=== PATIENT | female | born 1985 | race Caucasian/White ===

== ENCOUNTER 2022-01-14 09:07 | Inpatient (IN) | payer OTHER ==
[2022-01-13 12:29] LABS: BASOPHILS % (AUTO) 0.3 % (0.0-2.0); EOSINOPHILS # (AUTO) 0.2 K/uL (0-0.4); EOSINOPHILS % (AUTO) 2.3 % (0.0-4.0); HEMATOCRIT 36.2 % (36-48); HEMOGLOBIN 12.1 g/dL (12.0-16.0); LYMPHOCYTES # (AUTO) 1.4 K/uL (2.5-16.5); LYMPHOCYTES % (AUTO) 16.1 % (20.5-51.1); MEAN CORPUSCULAR HEMOGLOBIN 29 pg (27-31); MEAN CORPUSCULAR HGB CONC 33 g/dL (33-37); MEAN CORPUSCULAR VOLUME 87.6 fL (80-94); MONOCYTES # (AUTO) 0.8 K/uL (0.8-1.0); MONOCYTES % (AUTO) 10.1 % (1.7-9.3); NEUTROPHILS % (AUTO) 71.2 % (42.2-75.2); PLATELET COUNT (AUTO) 353 K/uL (140-450); RED BLOOD CELL COUNT(AUTO) 4.13 MIL/uL (4.20-5.40); RED CELL DISTRIBUTION WIDTH 15.3 % (11.6-13.7); WHITE BLOOD COUNT (AUTO) 8.4 K/uL (4.8-10.8)
[2022-01-13 12:43] LABS: ALBUMIN 2.5 g/dL (3.4-5.0); ANION GAP 14.4 (8-16); CARBON DIOXIDE 21.6 mmol/L (21-32); CREATININE 0.6 mg/dL (0.6-1.3); TOTAL BILIRUBIN 0.2 mg/dL (0.0-1.0)
[~2022-01-14] VITALS: Ht 170.2 cm; Wt 84.4 kg
[2022-01-14] MEDS ORDERED: CITRIC ACID/SODIUM CITRATE 30 ML UDC PO SCH (11:05)
[2022-01-14] MEDS ORDERED: LACTATED RINGERS 1,000 ML IV SCH (11:05)
[2022-01-14] MEDS ORDERED: METOCLOPRAMIDE 10 MG/2 ML INJ VIAL IVP SCH (11:05)
[2022-01-14] MEDS ORDERED: DOXY25TA61 PO (11:25)
[2022-01-14] MEDS ORDERED: DOCU-299 PO (11:25)
[2022-01-14] MEDS ORDERED: PNV91TAB8 PO (11:25)
[2022-01-14] MEDS: LACTATED RINGERS 1,000 ML IV SCH ×2 (11:30→12:00)
[2022-01-14 12:12] LABS: APPEARANCE,URINE CLEAR (CLEAR); BILIRUBIN,URINE NEGATIVE (NEGATIVE); BLOOD, URINE NEGATIVE (NEGATIVE); COLOR,URINE YELLOW (YELLOW); LEUKOCYTE ESTERASE ,URINE 1+ (NEGATIVE); NITRITE, URINE NEGATIVE (NEGATIVE); UGLUCOSE NEGATIVE (NEGATIVE)
[2022-01-14] MEDS ORDERED: fentaNYL citrate 0.05 MG/ML VIAL ONE (12:19)
[2022-01-14] MEDS ORDERED: MORPHINE PRES FREE 10 MG/10 ML AMP IV ONE (12:20)
[2022-01-14 12:34] LABS: PROTHROMBIN TIME 9.5 secs (10.8-13.4)
[2022-01-14] MEDS ORDERED: METHYLERGONOVINE 0.2 MG/ML AMP ONE (13:00)
[2022-01-14] MEDS ORDERED: KETOROLAC 60 MG/2 ML VIAL IM PRN (13:20)
[2022-01-14] MEDS ORDERED: NALOXONE 0.4 MG/ML VIAL IVP PRN ×3 (13:20)
[2022-01-14] MEDS ORDERED: diphenhydrAMINE 50 MG/ML VIAL IVP PRN ×2 (13:20)
[2022-01-14] MEDS ORDERED: ONDANSETRON 4 MG/2 ML VIAL IVP PRN (13:20)
[2022-01-14 13:42] LABS: RBC,URINE 0-5 /HPF (0-5)
[2022-01-14] MEDS ORDERED: OXYTOCIN 20 UNITS/LR PREMIX 1,000 ML IV ONE (14:03)
[2022-01-14] MEDS ORDERED: HYDROcodone/APAP 5/325 MG 1 TAB TAB PO PRN ×2 (16:00)
[2022-01-14] MEDS ORDERED: oxyCODONE/APAP 5/325 MG 1 TAB TAB PO PRN ×2 (16:00)
[2022-01-14] MEDS ORDERED: BENZOCAINE/MENTHOL 20%-0.5% 60 GM CAN TP PRN (16:00)
[2022-01-14] MEDS ORDERED: OXYTOCIN 20 UNITS in LACTATED RINGERS 1,000 ML IV SCH ×2 (16:00→22:45)
[2022-01-14] MEDS ORDERED: IBUPROFEN 600 MG TAB PO PRN (16:00)
[2022-01-14] MEDS ORDERED: bisacodyL 10 MG SUPP RC PRN (16:00)
[2022-01-14] MEDS ORDERED: bisacodyL 5 MG TABEC PO SCH (21:00)
[2022-01-15] MEDS ORDERED: OXYTOCIN 20 UNITS/LR PREMIX 1,000 ML IV ONE (01:58)
[2022-01-15 07:17] LABS: BASOPHILS % (AUTO) 0.3 % (0.0-2.0); EOSINOPHILS # (AUTO) 0.1 K/uL (0-0.4); HEMATOCRIT 27.4 % (36-48); LYMPHOCYTES # (AUTO) 1.9 K/uL (2.5-16.5); LYMPHOCYTES % (AUTO) 14.5 % (20.5-51.1); MEAN CORPUSCULAR HEMOGLOBIN 29 pg (27-31); MEAN CORPUSCULAR HGB CONC 33 g/dL (33-37); MONOCYTES # (AUTO) 1.4 K/uL (0.8-1.0); MONOCYTES % (AUTO) 10.6 % (1.7-9.3); NEUTROPHILS # (AUTO) 9.8 K/uL (1.8-7.7); NEUTROPHILS % (AUTO) 73.6 % (42.2-75.2); PLATELET COUNT (AUTO) 292 K/uL (140-450); RED BLOOD CELL COUNT(AUTO) 3.11 MIL/uL (4.20-5.40); RED CELL DISTRIBUTION WIDTH 14.9 % (11.6-13.7); WHITE BLOOD COUNT (AUTO) 13.3 K/uL (4.8-10.8)
--- NOTE | 2022-01-15 08:47 | NUR ---
PATIENT HAS BEEN SCREENED AND CATEGORIZED LOW NUTRITION RISK. PATIENT WILL BE SEEN WITHIN 7 DAYS OF ADMISSION. 01/21/22 REVIEWED BY HARJINDER BENAVIDEZ RD
[2022-01-15] MEDS: oxyCODONE/APAP 5/325 MG 1 TAB TAB PO PRN (09:37)
[2022-01-15] MEDS ORDERED: LOPERAMIDE 2 MG CAP PO PRN (09:45)
[2022-01-15] MEDS ORDERED: IBUPROFEN 800 MG TAB PO SCH (12:00)
[2022-01-16] MEDS: IBUPROFEN 800 MG TAB PO SCH ×3 (01:01→17:04)
[2022-01-16 13:34] LABS: HEMATOCRIT 27.6 % (36-48); HEMOGLOBIN 9.4 g/dL (12.0-16.0)
[2022-01-17] MEDS: IBUPROFEN 800 MG TAB PO SCH ×2 (01:02→09:34)
[2022-01-17] MEDS: oxyCODONE/APAP 5/325 MG 1 TAB TAB PO PRN (09:53)
== END 2022-01-17 12:15 | disposition home or self-care (01) | DRG 788 ==
LOC: MLD 10:29 → MFCC 14:00
PROVIDERS: ADMIT Obstetrics & Gynecology; ATTEND Obstetrics & Gynecology
PROC: 10D00Z1 Extraction of Products of Conception, Low, Open Approach (ICD-10-PCS; principal; 2022-01-14 12:30)
DX: O99.62 Diseases of the digestive system complicating childbirth (principal); R19.7 Diarrhea, unspecified; O65.4 Obstructed labor due to fetopelvic disproportion, unspecified; Z20.822 Contact with and (suspected) exposure to COVID-19; Z79.899 Other long term (current) drug therapy; Z3A.39 39 weeks gestation of pregnancy; Z37.0 Single live birth
CPT/HCPCS: 36415; 80053; 81001; 85018; 85025; 85610; 85730; 86592; 86886; 86900; 86901; 87081; 87086; 90715; J0690; J2210; J2270; J2590; J3010; J7060; J7120